=== PATIENT | female | born 1975 | race Caucasian/White ===

== ENCOUNTER 2020-04-04 01:36 | Emergency (ER) | payer SELFPAY ==
[~2020-04-04] VITALS: Ht 160 cm; Wt 75.0 kg
[2020-04-04] MEDS ORDERED: ACETAMINOPHEN 325MG TABLET PO ONE (02:30)
[2020-04-04] MEDS ORDERED: LIDOCAINE HCL/EPINEPHRINE 1%-EPI 1:100,000 20 ML VIAL INFIL ONE (02:30)
[2020-04-04 05:20] VITALS: BP 120/80
== END 2020-04-04 05:21 | disposition home or self-care (01) ==
LOC: ER 01:36
DX: S01.01XA Laceration without foreign body of scalp, initial encounter (principal); S91.119A Laceration without foreign body of unspecified toe without damage to nail, initial encounter; Y04.0XXA Assault by unarmed brawl or fight, initial encounter; Y93.89 Activity, other specified; Y92.89 Other specified places as the place of occurrence of the external cause; Y99.8 Other external cause status
CPT/HCPCS: 12001; 70450; 73080; 73630; 99285; J3490